=== PATIENT | male | born 1980 | race Caucasian/White ===

== ENCOUNTER → 2023-02-16 07:32 | Outpatient (BNVA) | payer OTHER, SELFPAY | PROVIDERS: PCP Nurse Practitioner; Visit Provider Otolaryngology | DX: J32.9 Chronic sinusitis, unspecified (principal); J34.2 Deviated nasal septum; J34.3 Hypertrophy of nasal turbinates; J34.89 Other specified disorders of nose and nasal sinuses | CPT/HCPCS: 99203 ==

== ENCOUNTER 2023-06-27 13:27 | Emergency (ER) | payer OTHER, SELFPAY ==
--- NOTE | 2023-06-27 13:33 | ECG_ITS ---
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 Measurements Intervals [place] Rate: 92 P: 45 MA: 124 QRS: 48 QRSD: 89 T: 51 QT: 343 QTc: 425 Interpretive Statements SINUS RHYTHM NONSPECIFIC T-WAVE ABNORMALITY No previous ECG available for comparison Electronically Signed On 06-27-2023 14:53:[address]RI[address] by Víctor Lozano M.D. [id number]
[2023-06-27 13:36] VITALS: BP 129/83; PULSE 90; RESP 16; TEMP 36.5; O2SAT 97; BMI 29.7
--- NOTE | 2023-06-27 13:36 | XR_ITS ---
WS: [id number] XR chest 1V portable [id number] REASON FOR EXAM: cp FINDINGS: The heart and the mediastinum are within normal limits. Calcified granulomatous disease in both hemithoraces. No acute/subacute pulmonary parenchymal or pleural abnormality. Bony thorax is intact without significant abnormality. IMPRESSION: No acute chest abnormality.
[2023-06-27 14:29] VITALS: BP 126/84; PULSE 84; RESP 16; O2SAT 99
--- NOTE | 2023-06-27 14:29 | ED_ITS ---
HPI - Chest Pain 2 General: Chief Complaint: Chest Pain Stated Complaint: sob Chest pain, [facility] Time Seen by Provider: 06/27/23 14:25 Source: patient Mode of arrival: ambulatory Limitations: no limitations History of Present Illness: 43-year-old male who states that he had had some chest pain he is tachycardic and having some dyspnea last night. He states today his symptoms have improved he went to the [facility] had sent him here. He denies any pain or dyspnea currently denies any worsening proving factors denies any fever he has a chronic cough. Associated symptoms: Reports dyspnea; Deny abdominal pain, fever(s), nausea or vomiting Review of Systems 2 Const: Denies: fever(s), chills, body aches or change in appetite ENMT: Denies: throat pain or dental pain Card: Reports: chest pain Resp: Reports: dyspnea GI: Denies: abdominal pain, nausea, vomiting or diarrhea : Denies: dysuria Musc: Denies: neck pain or back pain Skin/Breast: Denies: rash Neuro: Denies: headache(s) PFSH ED 2 PFSH: Surgical History Hx of hernia repair History of mandibular surgery Social History Smoking and tobacco/nicotine status: never used tobacco/nicotine Alcohol intake: never Physical Exam 2 Const: COMMON NORMALS: no acute distress, patient oriented x3 and healthy appearing HENMT: COMMON NORMALS: normocephalic and atraumatic HEAD & SCALP: n ormocephalic and atraumatic Neck/C-Spine: COMMON NORMALS: full ROM and supple Chest: COMMONS NORMALS: normal inspection of the chest Resp: COMMON NORMALS: normal respiratory effort, No retractions, No use of accessory muscles and clear to auscultation bilaterally AUSCULTATION: clear to auscultation bilaterally Cardio: COMMON NORMALS: regular rate, regular rhythm and No murmurs present (Cardio) RATE: regular rate RHYTHM: regular rhythm Extremity: COMMON NORMALS: normal to inspection and full ROM Neuro: COMMON NORMALS: patient oriented x3, moves all extremities and no focal motor deficits Psych: COMMON NORMALS: mental status grossly normal, Normal thought process present and cooperative THOUGHT PROCESS: Normal thought process present Skin: COMMON NORMALS: no rashes or lesions noted and no wounds GENERAL SKIN EXAM: no rashes or lesions noted Course 2 Vital Signs: Vital signs: Vital Signs Temperature 97.7 F 06/27/23 13:36 Pulse Rate 80 06/27/23 15:40 Respiratory Rate 18 06/27/23 15:40 Blood Pressure 115/87 06/27/23 15:40 Pulse Oximetry 98 06/27/23 15:40 Oxygen Delivery Me thod Room Air 06/27/23 13:36 MDM - Chest Pain Medical Decision Making Patient presents here with chest pain dyspnea overnight he does have PTSD could be some anxiety his troponin D-dimer here is negative he is pain is resolved he has no signs of ACS he is stable for discharge he is follow-up with PCP and return if worsening. Medical Records I reviewed the patient's medical records. Lab Data I reviewed the patient's lab results. 06/27/23 14:17 06/27/23 14:17 Laboratory Results WBC 6.48 10^3/uL (3.29-11.43) 06/27/23 14:17 RBC 4.79 10^6/uL (3.85-5.65) 06/27/23 14:17 Hgb 15.10 g/dL (11.27-16.99) 06/27/23 14:17 Hct 44.7 % (37-53) 06/27/23 14:17 MCV 93.3 fl (82-101) 06/27/23 14:17 MCH 31.5 pg (27-33) 06/27/23 14:17 MCHC 33.8 g/dL (30-55) 06/27/23 14:17 RDW 12.3 % (12.1-15.1) 06/27/23 14:17 Plt Count 246 10^3/cmm (157-399) 06/27/23 14:17 MPV 10.2 fL (7.4-10.4) 06/27/23 14:17 Neut % (Auto) 51.4 % 06/27/23 14:17 Lymph % (Auto) 30.1 % 06/27/23 14:17 [place] % (Auto) 11.0 % 06/27/23 14:17 Eos % (Auto) 6.6 % 06/27/23 14:17 Baso % (Auto) 0.6 % 06/27/23 14:17 Neut # (Auto) 3.33 10^3/uL (1.8-7.7) 06/27/23 14:17 Lymph # (Auto) 2.0 10^3/uL (0.8-4.8) 06/27/23 14:17 [place] # (Auto) 0.7 10^3/uL (0.2-0.9) 06/27/23 14:17 Eos # (Auto) 0.4 10^3/uL (0.0-0.8) 06/27/23 14:17 Baso # (Auto) 0.0 10^3/uL (0.0-0.1) 06/27/23 14:17 Nucleated RBC % (auto) 0 % 06/27/23 14:17 Nucleated RBCs # 0.0 /100WBC 06/27/23 14:17 D-Dimer 0.34 ug/mLFEU (0-0.59) 06/27/23 14:58 Sodium 141 mmol/L (136-145) 06/27/23 14:17 Potassium 3.8 mmol/L (3.5-5.1) 06/27/23 14:17 Chloride 104 mmol/L (98-107) 06/27/23 14:17 Carbon Dioxide 27 mmol/L (22-29) 06/27/23 14:17 Anion Gap 13.8 (5-19) 06/27/23 14:17 BUN 10 mg/dL (6-20) 06/27/23 14:17 Creatinine 1.3 mg/dL (0.7-1.2) H 06/27/23 14:17 GFR Calculation 60.2 mL/min (90-130) L 06/27/23 14:17 Glucose 88 mg/dL (65-115) 06/27/23 14:17 Calculated Osmolality 290 mOsm/kg (285-295) 06/27/23 14:17 Calcium 8.8 mg/dL (8.5-10.5) 06/27/23 14:17 Total Bilirubin 0.4 mg/dL (0.15-1.2) 06/27/23 14:17 AST 21 U/L (0-40) 06/27/23 14:17 ALT 17 U/L (0-41) 06/27/23 14:17 Alkaline Phosphatase 89 U/L (40-130) 06/27/23 14:17 Troponin T Baseline < 6 ng/L (0-15) 06/27/23 14:17 NT-Pro-B Natriuret Pep < 36 pg/mL (0-125) 06/27/23 14:17 Total Protein 6.5 g/dL (6.6-8.7) L 06/27/23 14:17 Albumin 4.1 g/dL (3.5-5.2) 06/27/23 14:17 Globulin 2.4 g/dL (1.3-4.6) 06/27/23 14:17 All radiology interpretation(s) finalized by discharge Discharge Plan Discharge Patient Disposition: Home Clinical Impression: Chest pain Condition: Stable Prescriptions: No Action No Known Home Medications Discharge Orders: Discharge ED (Routine); Ordered 06/27/23 Ordered By: Izabella Ro Referrals: Yamilex Cervantes, D[employer] OPERATOR CLOTH [Primary Care Provider] - 1-3 days Discharge Diet: Advance as tolerated Discharge Activity: Resume usual activity Patient Instructions: Chest Pain (ED) Coding Level of Care Code ED Last Repairer for David Jane
[2023-06-27] MEDS: aspirin 81 mg Chew Tablet 324 MG PO (14:33)
[2023-06-27 14:55] LABS: Basophils % 0.6 %; Eosinophils # 0.4 10^3/uL (0.0-0.8); Eosinophils % 6.6 %; Hematocrit 44.7 % (37-53); Lymphocytes % 30.1 %; Mean Corpuscular HGB Conc 33.8 g/dL (30-55); Mean Corpuscular Hemoglobin 31.5 pg (27-33); Mean Corpuscular Volume 93.3 fl (82-101); Mean Platelet Volume 10.2 fL (7.4-10.4); Monocytes # 0.7 10^3/uL (0.2-0.9); Neutrophils # 3.33 10^3/uL (1.8-7.7); Neutrophils % 51.4 %; Nucleated Red Blood Cells % 0 %; Platelet Count 246 10^3/cmm (157-399); Red Blood Count 4.79 10^6/uL (3.85-5.65); Red Cell Distribution Width 12.3 % (12.1-15.1); White Blood Count 6.48 10^3/uL (3.29-11.43)
[2023-06-27 15:15] LABS: Troponin(5th) Baseline < 6 ng/L (0-15)
[2023-06-27 15:15] LABS: D Dimer 0.34 ug/mLFEU (0-0.59)
[2023-06-27 15:40] VITALS: BP 115/87; PULSE 80; RESP 18; O2SAT 98
[2023-06-27 15:45] LABS: Alanine Aminotransferase 17 U/L (0-41); Albumin Level 4.1 g/dL (3.5-5.2); Alkaline Phosphatase 89 U/L (40-130); Anion Gap 13.8 (5-19); Aspartate Amino Transferase 21 U/L (0-40); Blood Urea Nitrogen 10 mg/dL (6-20); Calcium 8.8 mg/dL (8.5-10.5); Carbon Dioxide 27 mmol/L (22-29); Chloride 104 mmol/L (98-107); Globulin 2.4 g/dL (1.3-4.6); Glomerular Filtration Rate 60.2 mL/min (90-130); Glucose 88 mg/dL (65-115); NT Pro B Type Natriuretic Pept < 36 pg/mL (0-125); Osmolality Calculated 290 mOsm/kg (285-295); Potassium 3.8 mmol/L (3.5-5.1); Sodium 141 mmol/L (136-145); Total Bilirubin 0.4 mg/dL (0.15-1.2); Total Protein 6.5 g/dL (6.6-8.7)
== END 2023-06-27 15:58 | disposition home or self-care (01) ==
PROVIDERS: Emergency Provider Emergency Medicine; PCP Nurse Practitioner
DX: R07.9 Chest pain, unspecified (principal)
CPT/HCPCS: 36415; 71045; 80053; 83880; 84484; 85025; 85378; 93005; 99285

== ENCOUNTER → 2025-01-24 07:48 | Outpatient (BNVA) | payer OTHER, SELFPAY | PROVIDERS: PCP Nurse Practitioner; Visit Provider Student in an Organized Health Care Education/Training Program | DX: K21.9 Gastro-esophageal reflux disease without esophagitis (principal) | CPT/HCPCS: 99204 ==

== ENCOUNTER 2025-02-12 07:43 | Day surgery (SDC) | payer OTHER, SELFPAY ==
[2025-02-12 08:00] VITALS: BP 132/96; PULSE 98; RESP 18; TEMP 36.3; O2SAT 98
[2025-02-12 08:01] VITALS: BMI 28.1
--- NOTE | 2025-02-12 08:44 | ANES.PREANE2 ---
Pre-Anesthetic Assessment Height/Weight: Height 1.7 m Weight 81.647 kg Temp Pulse Resp BP Pulse Ox O2 Del Method 97.3 F L 98 18 132/96 98 Room Air 02/12/25 08:00 02/12/25 08:00 02/12/25 08:00 02/12/25 08:00 02/12/25 08:00 02/12/25 08:00 Preop Diagnosis: acid reflux Operation Date: 02/12/25 09:15 Proposed Procedures p EGD EGD with Biopsy 86815 K21.9(Not Applicable) - Chris Quintanilla MD Was Beta Tuan taken within 24 hours: N/A Was Clonidine taken within 24 hours: N/A Last intake: Intake Last Liquid Date 02/11/25 Last Liquid Time 20:00 Last Solid Date 02/11/25 Last Solid Time 20:00 Last Intake: 23:00 Social No alcohol and No tobacco Exam alert and oriented x 3 Airway Submandibular: within normal limits Cervical ROM: within normal limits Mallampati: Class II Dentition: full History/ROS No significant history except as noted Pulmonary None reported CV/HEM None reported None reported Hepatic None reported GI Gastroesophageal Reflux Disease Metabolic None reported Musc/skel None reported Neuropsych None reported Anesthetic Plan ASA status: 2 Anesthesia: Anesthesia Evaluation Risk of > 500 ml blood loss (7ml/kg in children): No Medications/Allergies Home Medications ?Medication ?Instructions ?Recorded ?Confirmed ?Last Taken ?Type fluticasone furoate 50 1 inh inhalation DAILY PRN 01/24/25 02/06/25 Unknown History mcg/actuation blister powder for Shortness Of Breath inhalation (Arnuity Ellipta) lamotrigine 100 mg tablet 50 mg PO BID 01/24/25 02/06/25 02/06/25 History pantoprazole 40 mg tablet,delayed 40 mg PO BID 30 days #60 tabs 01/24/25 02/06/25 02/06/25 Rx release (Protonix) prazosin 5 mg capsule 5 mg PO DAILY 01/24/25 02/06/25 02/06/25 History Allergies Allergy/AdvReac Type Severity Reaction Status Date / Time No Known Allergies Allergy Verified 02/12/25 07:54 Current Medications Generic Name Dose Route Start Last Admin Trade Name Freq PRN Reason Stop Dose Admin Sodium Chloride 1,000 mls @ 15 mls/hr 02/12/25 07:48 02/12/25 07:56 Sodium Chloride 0.9% IV 02/13/25 07:47 15 mls/hr .Q24H PRN Administration COLONOSCOPY FLUIDS PFSH Anesthesia Surgical History Hx of hernia repair History of mandibular surgery Social History Smoking and tobacco/nicotine status: never used tobacco/nicotine Alcohol intake: never
--- NOTE | 2025-02-12 09:07 | W.PM.OPSUD ---
Surgery/Procedure H&P Update DATE OF PROCEDURE: February 12, 2025 DATE H&P PERFORMED: 01/24/25 H&P UPDATE INFORMATION: I have reviewed H&P completed within last 30 days, I have examined patient prior to procedure and No changes to prior documentation PREOP DIAGNOSIS: acid reflux PLANNED PROCEDURE: Operation Date: 02/12/25 09:15 Proposed Procedures p EGD EGD with Biopsy 07082 K21.9(Not Applicable) - Chris Quintanilla MD
[2025-02-12 09:19] VITALS: BP 105/82; PULSE 101; RESP 16; TEMP 36.3; O2SAT 96
[2025-02-12 09:31] VITALS: BP 131/89; PULSE 104; RESP 18; O2SAT 98
--- NOTE | 2025-02-12 09:50 | ANE.PACU2 ---
Inpatient post-anesthesia follow up: Airway intact: Yes Vital signs: Temperature 97.4 F Pulse Rate 104 Respiratory Rate 18 Blood Pressure 131/89 Pulse Oximetry 98 Oxygen Delivery Me thod Room Air Oxygen Flow Rate Fraction of Inspir ed Oxygen Hydration adequate: Yes Nausea and vomiting: No Pain level: 1 Mental status: Baseline
== END 2025-02-12 09:55 | disposition home or self-care (01) ==
PROVIDERS: PCP Nurse Practitioner; Visit Provider Student in an Organized Health Care Education/Training Program
PROC: 0DJ08ZZ Inspection of Upper Intestinal Tract, Via Natural or Artificial Opening Endoscopic (ICD-10-PCS; principal; 2025-02-12 09:15)
DX: K21.9 Gastro-esophageal reflux disease without esophagitis (principal); K44.9 Diaphragmatic hernia without obstruction or gangrene; K29.70 Gastritis, unspecified, without bleeding
CPT/HCPCS: 43239; 88305; J2704; J7030

== ENCOUNTER → 2025-02-25 10:09 | Outpatient (BNVA) | payer OTHER, SELFPAY | PROVIDERS: PCP Nurse Practitioner; Visit Provider Student in an Organized Health Care Education/Training Program | DX: Z09 Encounter for follow-up examination after completed treatment for conditions other than malignant neoplasm (principal); R03.0 Elevated blood-pressure reading, without diagnosis of hypertension | CPT/HCPCS: 99213 ==